=== PATIENT | male | born 2000 | race Hispanic/Latino ===

== ENCOUNTER 2020-04-10 12:57 | Emergency (ER) | payer OTHER, SELFPAY ==
[~2020-04-10] VITALS: Ht 170.2 cm; Wt 54.7 kg
[2020-04-10 14:30] LABS: HEMATOCRIT 42.7 % (42.0-52.0); HEMOGLOBIN 13.6 g/dl (13.5-17.5); MEAN CORPUSCULAR HEMOGLOBIN 25.9 pg (27.0-33.0); MEAN CORPUSCULAR HGB CONC 31.9 g/dl (32.0-36.5); MEAN CORPUSCULAR VOLUME 81.2 fl (80.0-96.0); PLATELET COUNT, AUTOMATED 188 10^3/uL (150-450); RED BLOOD COUNT 5.26 10^6/uL (4.30-6.10); WHITE BLOOD COUNT 3.3 10^3/uL (4.0-10.0)
--- NOTE | 2020-04-10 15:54 | REPVR ---
PROCEDURE INFORMATION: Exam: CT Head Without Contrast Exam date and time: 04/10/2020 3:40 PM Age: 19 years old Clinical indication: Pain; Headache; Additional info: Headache/numbness TECHNIQUE: Imaging protocol: Computed tomography of the head without contrast. Radiation optimization: All CT scans at this facility use at least one of these dose optimization techniques: automated exposure control; mA and/or kV adjustment per patient size (includes targeted exams where dose is matched to clinical indication); or iterative reconstruction. COMPARISON: No relevant prior studies available. FINDINGS: Brain: No acute intracranial hemorrhage, cerebral edema, or midline shift. Ventricles: No hydrocephalus. Bones/joints: No acute fracture. Sinuses: No acute sinusitis. Mastoid air cells: Visualized mastoid air cells are well aerated. Orbits: The included orbital structures are unremarkable. Soft tissues: Unremarkable. IMPRESSION: No acute intracranial abnormality. Electronically signed by: Avelino Balderas On 04/10/2020 15:54:28 PM
[2020-04-10 16:12] VITALS: BP 121/69
== END 2020-04-10 16:13 | disposition home or self-care (01) ==
LOC: M ED 12:57
DX: R51 Headache (principal); M62.838 Other muscle spasm; R06.02 Shortness of breath; R42 Dizziness and giddiness

== ENCOUNTER 2021-06-29 19:45 | Emergency (ER) | payer OTHER ==
[~2021-06-29] VITALS: Ht 170.2 cm; Wt 53.7 kg
[2021-06-29] MEDS ORDERED: ACETAMINOPHEN TAB 650MG DOSE (2X325MG) PO ONE (19:55)
[2021-06-29 20:43] LABS: RSV AMPLIFICATION NEGATIVE (NEGATIVE)
[2021-06-29 21:24] VITALS: O2SAT 93
[2021-06-29] MEDS ORDERED: NS 1,000 ML IV ONE (21:25)
[2021-06-29 22:06] LABS: BASO % 0.6 % (0.0-1.0); HEMATOCRIT 44.7 % (42.0-52.0); HEMOGLOBIN 14.2 g/dl (13.5-17.5); LYMPH # 0.7 10^3/uL (1.5-5.0); LYMPH % 20.1 % (24.0-44.0); MEAN CORPUSCULAR HEMOGLOBIN 25.4 pg (27.0-33.0); MEAN CORPUSCULAR HGB CONC 31.8 g/dl (32.0-36.5); MEAN CORPUSCULAR VOLUME 79.8 fl (80.0-96.0); MONO # 0.6 10^3/uL (0.0-0.8); MONO % 16.9 % (2.0-8.0); NEUTROPHILS # 2.2 10^3/uL (1.5-8.5); NEUTROPHILS % 62.1 % (36.0-66.0); PLATELET COUNT, AUTOMATED 155 10^3/uL (150-450); WHITE BLOOD COUNT 3.5 10^3/uL (4.0-10.0)
[2021-06-29 22:30] VITALS: BP 129/71
[2021-06-29 22:30] LABS: BLOOD UREA NITROGEN 21 MG/DL (7-18); CALCIUM LEVEL 8.7 MG/DL (8.5-10.1); CARBON DIOXIDE LEVEL 25 MEQ/L (21-32); CHLORIDE LEVEL 105 MEQ/L (98-107); CK-MB VALUE MASS < 1.0 NG/ML (<3.6); CPK CREATINE PHOSPHOKINASE 100 U/L (39-308); CREATININE FOR GFR 1.08 MG/DL (0.70-1.30); GLOMERULAR FILTRATION RATE > 60.0 (>60); GLUCOSE, FASTING 81 MG/DL (70-100); POTASSIUM SERUM 3.6 MEQ/L (3.5-5.1); SODIUM LEVEL 138 MEQ/L (136-145); TROPONIN I < 0.02 NG/ML (< 0.10)
--- NOTE | 2021-06-29 22:34 | REPVR ---
PROCEDURE INFORMATION: Exam: XR Chest Exam date and time: 06/29/2021 9:37 PM Age: 20 years old Clinical indication: Other: SOB, covid+; Additional info: SOB, covid + TECHNIQUE: Imaging protocol: XR of the chest. Views: 1 view. COMPARISON: No relevant prior studies available. FINDINGS: Lungs: Degree of lung inflation is normal. No evidence of pulmonary edema. No focal consolidation or parenchymal lung mass. Pleural spaces: No pleural effusion or pneumothorax. Heart/Mediastinum: Cardiac silhouette appears normal. No adenopathy or hilar mass. Bones/joints: Osseous structures show no concerning abnormality. IMPRESSION: No acute or focal cardiopulmonary process. Electronically signed by: Rubén Peres On 06/29/2021 22:34:23 PM
[2021-06-29] MEDS ORDERED: ISOVUE-370 76% 100ML VIAL As Ordered ONE (22:41)
--- NOTE | 2021-06-29 23:02 | REPVR ---
PROCEDURE INFORMATION: Exam: CTA Chest With Contrast Exam date and time: 06/29/2021 10:45 PM Age: 20 years old Clinical indication: Other: Shortness of breath, tachycardia, RO pe TECHNIQUE: Imaging protocol: Computed tomographic angiography of the chest with contrast. 3D rendering (Not supervised by radiologist): MIP and/or 3D reconstructed images were created by the technologist. Radiation optimization: All CT scans at this facility use at least one of these dose optimization techniques: automated exposure control; mA and/or kV adjustment per patient size (includes targeted exams where dose is matched to clinical indication); or iterative reconstruction. Contrast material: ISOVUE 370; Contrast volume: 75 ml; Contrast route: INTRAVENOUS (IV); COMPARISON: CR Chest, 1 view 06/29/2021 9:23 PM FINDINGS: Pulmonary arteries: No focal pulmonary artery filling defect to suggest acute pulmonary embolus. Pulmonary vascular/interstitial pattern does not suggest active pulmonary edema. Aorta: No thoracic aortic aneurysm or dissection. Lungs: No suspicious lung mass or air space process. No central endobronchial lesion. Pleural spaces: No pleural effusion or pneumothorax. Heart: No overt cardiac enlargement or abnormal volume of pericardial fluid. Mediastinal space: Residual thymic tissue is present in the anterior mediastinum. Lymph nodes: No enlarged mediastinal lymph nodes. Bones/joints: Bony structures show no acute fracture or destructive process. Soft tissues: No asymmetric abnormality of the extrathoracic soft tissues. Other findings: No concerning asymmetry or abnormality at the GE junction. IMPRESSION: 1. No evidence of acute pulmonary embolus. 2. No other acute or concerning focal intrathoracic abnormality. Electronically signed by: Rubén Peres On 06/29/2021 23:01:43 PM
--- NOTE | 2021-06-30 20:04 | ECGEPIP ---
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
== END 2021-06-29 23:30 | disposition home or self-care (01) ==
LOC: M ED 19:45
DX: U07.1 COVID-19 (principal); R05.9 Cough, unspecified; R51.9 Headache, unspecified; R50.9 Fever, unspecified
CPT/HCPCS: 71045; 71275; 80048; 82550; 82553; 85025; 85379; 87631; 93005; 93041; 94760; 99284; Q9967